=== PATIENT | male | born 1975 ===

== ENCOUNTER → 2019-01-14 12:48 | Outpatient (CLI) | payer MEDICAID ==
[2019-01-14 14:32] LABS: ALBUMIN 3.3 g/dL (3.4-5.0); BILIRUBIN - DIRECT 0.15 mg/dL (0.00-0.30); BILIRUBIN - INDIRECT 0.27 mg/dL (0.00-1.00); BILIRUBIN - TOTAL 0.42 mg/dL (0.2-1.3); CREATININE - SERUM 0.8 mg/dL (0.6-1.3); PROTEIN - SERUM 8.2 g/dL (6.4-8.2); VANCOMYCIN - TROUGH 7.7 ug/mL (10.0-20.0)
[2019-01-14 14:37] LABS: BASOPHILS 0.7 % (0-2); EOSINOPHILS 6.2 % (0-7); HEMATOCRIT 35.4 % (42.0-54.0); HEMOGLOBIN 11.1 g/dL (13.5-17.5); IMMATURE GRANULOCYTES 0.2 % (0-5); MCH 26.6 pg (26.0-34.0); MCHC 31.4 g/dL (31.0-37.0); MCV 84.9 fL (80.0-100.0); MONOCYTES 7.9 % (2-11); PLATELET COUNT 386 10x3/uL (130-400); RBC 4.17 10x6/uL (4.20-6.10); RDW 16.9 % (11.5-14.5); WBC 9.8 10x3/uL (4.8-10.8)
== END | disposition home or self-care (01) ==
LOC: D.LABREF 12:48
DX: Z47.89 Encounter for other orthopedic aftercare (principal)